=== PATIENT | female | born 1960 | race Caucasian/White ===

== ENCOUNTER 2020-11-25 19:54 | Inpatient (IN) | payer OTHER ==
[2020-11-25] VITALS (11 sets, daily range): BP systolic 134–160; BP diastolic 79–104
[~2020-11-25] VITALS: Ht 162.6 cm; Wt 68.5 kg
[2020-11-25] MEDS ORDERED: SODIUM CHLORIDE 0.9% 1,000 ML IV ONE (20:45)
[2020-11-25 20:49] LABS: BASOPHILS % 1.1 % (0.0-2.0); EOSINOPHILS % 5.6 % (0.0-5.0); HEMATOCRIT. 27.6 % (36.0-48.0); HEMOGLOBIN. 9.4 g/dL (12.0-16.0); LYMPHOCYTES % 23.5 % (20.0-50.0); MEAN CORPUSCULAR HEMOGLOBIN 31.5 pg (28.0-32.0); MEAN CORPUSCULAR VOLUME 92.1 fL (81.0-99.0); MEAN PLATELET VOLUME 12.1 fl (7.4-10.4); NEUTROPHILS % 61.8 % (40.0-76.0); PLATELET 122 x1000/uL (130-400); RED BLOOD CELL COUNT 2.99 mill/uL (4.2-5.4); RED CELL DISTRIBUTION WIDTH 14.8 % (11.6-14.6)
[2020-11-25 20:53] LABS: CHLORIDE 108 mEq/L (98-107)
[2020-11-25 21:03] LABS: PROTHROMBIN TIME 10.7 sec (9.6-11.0)
[2020-11-25] MEDS ORDERED: NOREPINEPHRINE 8 MG in DEXT 5% WATER 242 ML IV STA ×2 (21:11→21:15)
[2020-11-25] MEDS ORDERED: TRANEXAMIC ACID 1,000 MG in SODIUM CHLORIDE 0.9% 100 ML IV NR (21:15)
[2020-11-25] MEDS ORDERED: TRANEXAMIC ACID 1,000 MG/10 ML IV ONE ×2 (21:15)
[2020-11-25] MEDS ORDERED: MIDAZOLAM HCL 2 MG/2 ML VIAL ONE (21:39)
[2020-11-25] MEDS ORDERED: FENTANYL CITRATE/PF 50MCG/ML 2ML VIAL ONE (21:39)
[2020-11-25] MEDS ORDERED: LIDOCAINE HCL 1% 20ML VIAL (Pyxis) INJ ONE ×2 (21:40→22:11)
[2020-11-25] MEDS ORDERED: SUCCINYLCHOLINE CHLORIDE 200MG/10ML IV ONE (21:40)
[2020-11-25] MEDS ORDERED: ETOMIDATE 2MG/ML 10ML VIAL IV ONE (21:40)
[2020-11-25] MEDS ORDERED: ROCURONIUM BROMIDE 10MG/ML VIAL 5ML IV ONE (21:40)
[2020-11-25] MEDS ORDERED: PHENYLEPHRINE HCL 10 MG/ML 1ML (IV VIAL) IV ONE (21:44)
[2020-11-25] MEDS ORDERED: IOHEXOL-300 100 ML BOTTLE ONE ×3 (22:11→23:31)
[2020-11-25] MEDS ORDERED: ONDANSETRON HCL 4MG/2ML INJ IV ONE (22:15)
[2020-11-25] MEDS ORDERED: CEFAZOLIN 1000MG PREMIX 50 ML IV ONE (22:18)
[2020-11-25] MEDS ORDERED: CEFAZOLIN 1000MG PREMIX 50 ML IV SCH (22:30)
[2020-11-26] VITALS (29 sets, daily range): BP systolic 115–166; BP diastolic 39–105
[2020-11-26 02:03] LABS: HEMATOCRIT 34.5 % (36.0-48.0); HEMOGLOBIN 11.7 g/dL (12.0-16.0)
[2020-11-26] MEDS: IBUPROFEN 600MG TABLET PO PRN ×3 (04:19→17:53)
[2020-11-26 06:05] LABS: CHLORIDE 114 mEq/L (98-107)
[2020-11-26 07:22] LABS: HEMATOCRIT. 32.2 % (36.0-48.0); HEMOGLOBIN. 11.1 g/dL (12.0-16.0); MEAN CORPUSCULAR HEMOGLOBIN 31.1 pg (28.0-32.0); MEAN CORPUSCULAR VOLUME 89.8 fL (81.0-99.0); RED BLOOD CELL COUNT 3.58 mill/uL (4.2-5.4)
[2020-11-26 07:23] LABS: BASOPHILS % 0.8 % (0.0-2.0); EOSINOPHILS % 1.2 % (0.0-5.0); LYMPHOCYTES % 14.8 % (20.0-50.0); MEAN PLATELET VOLUME 11.6 fl (7.4-10.4); MONOCYTES % 8.4 % (2.0-8.0); NEUTROPHILS % 74.8 % (40.0-76.0); PLATELET 84 x1000/uL (130-400); RED CELL DISTRIBUTION WIDTH 15.2 % (11.6-14.6)
[2020-11-26 11:45] LABS: HEMOGLOBIN 10.7 g/dL (12.0-16.0)
[2020-11-26 11:49] LABS: PROTHROMBIN TIME 10.7 sec (9.6-11.0)
[2020-11-26] MEDS ORDERED: ONDANSETRON HCL 4MG TABLET PO PRN (12:45)
[2020-11-26] MEDS ORDERED: ONDANSETRON HCL 4MG/2ML INJ IV PRN (13:00)
[2020-11-26] MEDS ORDERED: CALCIUM ACETATE 667MG CAPSULE PO NR ×2 (19:15→19:30)
[2020-11-26] MEDS ORDERED: PHENOBARBITAL 60MG TABLET PO SCH (21:00)
[2020-11-26] MEDS ORDERED: CALCIUM GLUCONATE 1GM PREMIX 50 ML IV NR (21:00)
[2020-11-26] MEDS ORDERED: PHENOBARBITAL 30 MG TABLET PO SCH (21:00)
[2020-11-27] VITALS: BP 104/71
[2020-11-27 04:00] VITALS: BP 120/66
[2020-11-27 07:30] LABS: HEMATOCRIT 29.4 % (36.0-48.0); HEMOGLOBIN 10.2 g/dL (12.0-16.0); MEAN CORPUSCULAR HEMOGLOBIN 31.3 pg (28.0-32.0); MEAN CORPUSCULAR VOLUME 90.2 fL (81.0-99.0); PLATELET 76 x1000/uL (130-400); RED BLOOD CELL COUNT 3.25 mill/uL (4.2-5.4); RED CELL DISTRIBUTION WIDTH 15.1 % (11.6-14.6)
[2020-11-27 08:00] VITALS: BP 133/76
[2020-11-27 12:00] VITALS: BP 138/82
[2020-11-27 14:25] LABS: HEMATOCRIT 27.8 % (36.0-48.0); HEMOGLOBIN 9.8 g/dL (12.0-16.0); MEAN CORPUSCULAR HEMOGLOBIN 31.5 pg (28.0-32.0); MEAN CORPUSCULAR VOLUME 89.7 fL (81.0-99.0); RED BLOOD CELL COUNT 3.09 mill/uL (4.2-5.4); RED CELL DISTRIBUTION WIDTH 15.1 % (11.6-14.6)
[2020-11-27 14:32] LABS: CHLORIDE 111 mEq/L (98-107)
[2020-11-27 16:00] VITALS: BP 141/83
[2020-11-27 18:07] LABS: BASOPHILS % 1.1 % (0.0-2.0); EOSINOPHILS % 5.7 % (0.0-5.0); HEMATOCRIT. 29.1 % (36.0-48.0); HEMOGLOBIN. 9.9 g/dL (12.0-16.0); LYMPHOCYTES % 14.9 % (20.0-50.0); MEAN CORPUSCULAR HEMOGLOBIN 30.9 pg (28.0-32.0); MEAN CORPUSCULAR VOLUME 90.9 fL (81.0-99.0); MONOCYTES % 7.7 % (2.0-8.0); NEUTROPHILS % 70.6 % (40.0-76.0); RED CELL DISTRIBUTION WIDTH 15.2 % (11.6-14.6)
[2020-11-27 19:01] LABS: MEAN PLATELET VOLUME 8.3 fl (7.4-10.4)
[2020-11-27 19:07] LABS: PLATELET 98 x1000/uL (130-400)
[2020-11-27 19:35] VITALS: BP 141/82
[2020-11-27] MEDS ORDERED: PHENOBARBITAL 100MG TABLET PO SCH (21:00)
== END 2020-11-27 19:55 | disposition home or self-care (01) | DRG 907 ==
LOC: ER 20:17 → ENRESERV 22:52 → MICUSO 11-26 00:20 → 6EST 11-26 13:07
PROVIDERS: ADMIT Obstetrics & Gynecology; ATTEND Obstetrics & Gynecology
PROC: 30233M1 Transfusion of Nonautologous Plasma Cryoprecipitate into Peripheral Vein, Percutaneous Approach (ICD-10-PCS; 2020-11-25)
PROC: 30233N1 Transfusion of Nonautologous Red Blood Cells into Peripheral Vein, Percutaneous Approach (ICD-10-PCS; 2020-11-25)
PROC: 04V Lower Arteries, Restriction (ICD-10-PCS; principal; 2020-11-26)
PROC: 04V Lower Arteries, Restriction (ICD-10-PCS; 2020-11-26)
PROC: B4101ZZ Fluoroscopy of Abdominal Aorta using Low Osmolar Contrast (ICD-10-PCS; 2020-11-26)
PROC: 30233R1 Transfusion of Nonautologous Platelets into Peripheral Vein, Percutaneous Approach (ICD-10-PCS; 2020-11-26)
DX: N99.820 Postprocedural hemorrhage of a genitourinary system organ or structure following a genitourinary system procedure (principal); R57.8 Other shock; D62 Acute posthemorrhagic anemia; R56.9 Unspecified convulsions; D69.6 Thrombocytopenia, unspecified; Z20.822 Contact with and (suspected) exposure to COVID-19; I10 Essential (primary) hypertension; E83.51 Hypocalcemia; E87.5 Hyperkalemia; Y83.8 Other surgical procedures as the cause of abnormal reaction of the patient, or of later complication, without mention of misadventure at the time of the procedure; Y82.8 Other medical devices associated with adverse incidents; Z90.710 Acquired absence of both cervix and uterus
CPT/HCPCS: 36415; 74176; 75625; 75736; 75898; 80053; 85014; 85018; 85025; 85027; 85049; 85384; 86850; 86900; 86920; 86927; 87426; 93005; 99291; C1725; C1730; C1760; C1766; J0330; J0610; J0690; J1644; J2250; J2370; J2405; J3010; J3490; J7030; J7040; J7050; J7060; P9016; P9017; P9034; Q9967